=== PATIENT | female | born 1970 | race Caucasian/White ===

== ENCOUNTER → 2021-10-14 10:48 | Outpatient (BNVA) | payer BC, MEDICAID, SELFPAY | PROVIDERS: Family Provider Family Medicine; PCP Nurse Practitioner Family; Visit Provider Internal Medicine Critical Care Medicine | DX: J45.909 Unspecified asthma, uncomplicated (principal); R06.02 Shortness of breath; J44.9 Chronic obstructive pulmonary disease, unspecified; J31.0 Chronic rhinitis; J32.9 Chronic sinusitis, unspecified; F17.200 Nicotine dependence, unspecified, uncomplicated | CPT/HCPCS: 36415; 71046; 80053; 82785; 85025; 86003 ==

== ENCOUNTER 2022-03-25 12:30 | Outpatient (CLI) | payer BC, MEDICAID, SELFPAY ==
--- NOTE | 2022-03-25 12:30 | CT_ITS ---
WS: [id number] CT CHEST WITHOUT INTRAVENOUS CONTRAST HISTORY: cough TECHNIQUE: Contiguous 5 mm axial imaging performed on the thorax. Coronal and sagittal reformats are submitted. All CT scans at [facility] use at least one of these dose optimization techniques: automated exposure control; mA and/or kV adjustment per patient size (includes targeted exams where dose is matched to clinical indication); or iterative reconstruction. CONTRAST: None DLP: 200.61 mGy.cm COMPARISON: None available. Lungs and central airway: Mild pulmonary hyperinflation with centrilobular emphysema. Centrilobular a irspace disease in the upper lung wynn bilaterally. 4.6 mm noncalcified nodule LEFT upper lobe, carmella ge 29 of series 4. Very slight mild peribronchial thickening RIGHT middle lobe. Pleura: Normal. No pleural effusion. Heart and pericardium: Normal size heart with no pericardial effusion. Mediastinum and riaz: Several small mediastinal and hilar lymph nodes. Size is normal. Vessels: Normal size aortic and pulmonary artery. No coronary artery calcifications. Chest wall and lower neck: No soft tissue masses. Upper abdomen: Negative. Osseous structures: No destructive process. CT/CT chest wo con [id number] IMPRESSION: 1. Mild centrilobular emphysema. 2. Noncalcified 4.6 mm nodule LEFT upper lobe. Recommend follow-up noncontrast chest CT in 6 months. 3. Very minimal RIGHT middle lobe bronchial thickening can also be reevaluated in 6 months.
== END 2022-03-25 12:31 | disposition home or self-care (01) ==
LOC: RAD 12:31
PROVIDERS: PCP Nurse Practitioner Family; Visit Provider Internal Medicine Pulmonary Disease
DX: R05.9 Cough, unspecified (principal); J43.2 Centrilobular emphysema; R91.1 Solitary pulmonary nodule
CPT/HCPCS: 71250

== ENCOUNTER 2022-04-08 12:38 | Outpatient (CLI) | payer BC, MEDICAID, SELFPAY ==
--- NOTE | 2022-04-08 | ECG_ITS ---
[facility] Test Date: 2022-04-08 Pat Name: Katiana Gonsalez Department: Room: Gender: Female [employer]sembler [employer]: : 1970 Requested By: Rafiq Warrenr Steven Order Number: [id number] Akira MD: Lilia Goncalves M.D. Interpretive Statements NAME OF STUDY: TREADMILL STRESS TEST INDICATION: Dyspnea on exertion, smoker Baseline blood pressure of 115/83 mm Hg, heart rate of 125 beats per minute and oxygen saturation of 97%. EKG showed sinus tachycardia, possible old anteroseptal infarct. Normal ST-Ts. ??? The patient exercised for 3 minutes on a [standard Hang protocol]. Patient attained a maximum heart rate of 152 beats per minute( 88 % of the maximum predicted heart rate) with a blood pressure at the peak exercise of 174/105 mm Hg and oxygen saturation of 95%. The EKG at the peak exercise revealed no significant ST-T wave changes. Patient did not have any chest pain or any significant arrhythmis with the exercise.??? During the recovery phase, there were no new changes. ??? Blood pressure at the end of the recovery phase was 116/87 mm Hg with a heart rate of 125 beats per minute and oxygen saturation of 98%. ??? CONCLUSION: 1. Normal EKG response to treadmill exercise. 2. No exercise-induced chest pain or cardiac arrhythmia. 3. Decreased exercise tolerance, attained a maximum of 4.6 METs. This is of limited sensitivity given baseline tachycardia and decreased exercise tolerance. 4. Baseline normal blood pressure with normal response to exercise. Electronically Signed On 04-09-2022 13:06:09 [employer] SUPERVISOR by Lilia Goncalves M.D. [id number]
[2022-04-08 13:14] VITALS: BMI 22.8
[2022-04-08 13:45] VITALS: BP 116/87; PULSE 127
== END 2022-04-08 12:39 | disposition home or self-care (01) ==
LOC: CDL 12:43
PROVIDERS: PCP Nurse Practitioner Family; Visit Provider Internal Medicine Pulmonary Disease
DX: R06.09 Other forms of dyspnea (principal); F17.210 Nicotine dependence, cigarettes, uncomplicated
CPT/HCPCS: 93017

== ENCOUNTER → 2022-12-01 11:48 | Outpatient (BNVA) | payer BC, MEDICAID, SELFPAY | PROVIDERS: PCP Nurse Practitioner Family; Visit Provider Internal Medicine Pulmonary Disease | DX: R05.9 Cough, unspecified (principal); J44.9 Chronic obstructive pulmonary disease, unspecified; J31.0 Chronic rhinitis; J32.9 Chronic sinusitis, unspecified; F17.200 Nicotine dependence, unspecified, uncomplicated; I10 Essential (primary) hypertension; R06.02 Shortness of breath | CPT/HCPCS: 71046 ==

== ENCOUNTER 2023-04-28 11:58 | Outpatient (CLI) | payer BC, MEDICAID, SELFPAY ==
--- NOTE | 2023-04-28 12:15 | CT_ITS ---
WS: [id number] LDCT LUNG CANCER SCREENING TECHNIQUE: Noncontrast CT of the chest with coronal and sagittal reformatted images. CLINICAL INFORMATION: Cancer Screen COMPARISON: 2022 DLP: 42.51 mGy.cm DIvol: Mean CTDIvol: 0.70 (mGy) All CT scans at [facility] use at least one of these dose optimization techniques: automat ed exposure control; mA and/or kV adjustment per patient size (includes targeted exams where dose is matched to clinical indication); or iterative reconstruction. FINDINGS: Mild chronic emphysematous changes. LEFT upper lobe nodule measures 5.5 mm today slightly larger comp ared to previous. Recommend 6-month follow-up. 3.8 mm nodule LEFT upper lobe. 3 mm nodule LEFT upper lobe anteriorly. Normal caliber thoracic aorta. No mediastinal or hilar lymphadenopathy. No axillary lymphadenopathy. IMPRESSION: CT/CT lung screening [id number] LUNG-RADS: 3-Probably Benign FOLLOW UP: 6 Month LDCT
== END 2023-04-28 11:59 | disposition home or self-care (01) ==
LOC: RAD 11:59
PROVIDERS: PCP Nurse Practitioner Family; Visit Provider Internal Medicine Pulmonary Disease
DX: Z12.2 Encounter for screening for malignant neoplasm of respiratory organs (principal); F17.210 Nicotine dependence, cigarettes, uncomplicated; J43.9 Emphysema, unspecified; R91.8 Other nonspecific abnormal finding of lung field
CPT/HCPCS: 71271

== ENCOUNTER → 2024-02-02 09:19 | Outpatient (BNVA) | payer BC, MEDICAID, SELFPAY | PROVIDERS: PCP Nurse Practitioner Family; Visit Provider Internal Medicine Cardiovascular Disease | DX: R00.2 Palpitations (principal) | CPT/HCPCS: 93005 ==

== ENCOUNTER 2024-03-15 07:28 | Outpatient (CLI) | payer BC, MEDICAID, SELFPAY ==
--- NOTE | 2024-03-15 07:45 | USCV_ITS ---
Katiana Gonsalez Age: 53 Gender: F : 1970 Exam Date: 03/15/2024 08:07 Ordering Phys: Geovany Christiansen MD ([email or web address]) Technologist: Shaun Simeon Exam Location: [facility] [place] Indication: SYNCOPE BP: 130 / 86 HR: 68 Rhythm: Sinus Technical Quality: Suboptimal MEASUREMENTS (Male / Female) Normal Values 2D ECHO LV Diastolic Diameter PLAX 2.9 cm 4.2 - 5.9 / 3.9 - 5.3 cm IVS Diastolic Thickness 0.6 cm 0.6 - 1.0 / 0.6 - 0.9 cm IVS Systolic Thickness 0.8 cm LVPW Diastolic Thickness 1.3 cm 0.6 - 1.0 / 0.6 - 0.9 cm LVPW Systolic Thickness 1.8 cm LVOT Diameter 2.0 cm LV Ejection Fraction 2D Teich 60.2 % LV Ejection Fraction MOD 4C 43.0 % LV Ejection Fraction MOD 2C 51.0 % LV Ejection Fraction 2C AL 47.9 % LA Diameter 3.1 cm RA Systolic Volume 4C AL 13.0 ml RA Systolic Volume 4C MOD 13.0 ml Aorta at Sinotubular Diameter 1.7 cm IVC Diameter 1.4 cm M-MODE LA Ao Ratio MM 1.1 AV Cusp Separation MM 1.4 cm DOPPLER MV Peak Velocity 99.0 cm/s MV Area PHT 5.0 cm squared Mitral E to A Ratio 1.3 TV Peak Velocity 222.0 cm/s TR Peak Velocity 254.0 cm/s TR Peak Gradient 25.8 mmHg TR Mean Velocity 202.0 cm/s TR Mean Gradient 17.7 mmHg TR Velocity Time Integral 80.0 cm PV Peak Velocity 72.0 cm/s RV Ejection Time 0.3 s FINDINGS Left Ventricle Normal left ventricular size, systolic function and wall thickness, with no regional wall motion abnormalities. Left ventricular ejection fraction is estimated at 60 %. Grade II/IV diastolic dysfunction, moderately elevated filling pressures. Right Ventricle The right ventricle is normal in size and function. Right Atrium The right atrium is normal in size. Left Atrium The left atrium is normal in size. Mitral Valve Structurally normal mitral valve without significant stenosis or prolapse. There is no mitral regurgitation. Aortic Valve Structurally normal aortic valve without significant sclerosis or stenosis. There is no aortic regurgitation. Tricuspid Valve Structurally normal tricuspid valve without significant stenosis or regurgitation. Pulmonary artery systolic pressure is normal. Pulmonic Valve Structurally normal pulmonic valve without significant stenosis. There is no pulmonic regurgitation. Pericardium Normal pericardium without effusion. Aorta Normal ascending aorta dimension. IVC The inferior vena cava appears normal. CONCLUSIONS Normal left ventricular size, systolic function and wall thickness, with no regional wall motion abnormalities. Left ventricular ejection fraction is estimated at 60 %. Grade II/IV diastolic dysfunction, moderately elevated filling pressures. No significant valve abnormalities. There is no pericardial effusion. Right atrial pressure is around 5 mm of mercury. Geovany Christiansen MD (Electronically Signed) Final Date: 19 March 2024 02:12 S
== END 2024-03-15 07:29 | disposition home or self-care (01) ==
LOC: RAD 07:28
PROVIDERS: PCP Nurse Practitioner Family; Visit Provider Internal Medicine Cardiovascular Disease
DX: R55 Syncope and collapse (principal); R93.1 Abnormal findings on diagnostic imaging of heart and coronary circulation
CPT/HCPCS: 93306

== ENCOUNTER → 2024-06-14 09:09 | Outpatient (BNVA) | payer MEDICAID, SELFPAY | PROVIDERS: PCP Nurse Practitioner Family; Visit Provider Nurse Practitioner Family | DX: I10 Essential (primary) hypertension (principal) | CPT/HCPCS: 93005 ==